=== PATIENT | male | born 1950 | race Caucasian/White ===

== ENCOUNTER 2020-09-11 12:04 | Emergency (ER) | payer OTHER ==
[~2020-09-11] VITALS: Ht 188 cm; Wt 83.5 kg
[2020-09-11] MEDS ORDERED: CIPRO500 MG PO (12:42)
[2020-09-11] MEDS ORDERED: ULTRAM50 MG PO (12:42)
== END 2020-09-11 15:28 | disposition home or self-care (01) ==
LOC: ER 12:04
DX: R10.31 Right lower quadrant pain (principal)

== ENCOUNTER 2020-10-10 16:57 | Inpatient (IN) | payer OTHER ==
[~2020-10-10] VITALS: Ht 188 cm; Wt 169.6 kg
[~2020-10-10 16:57] MED LIST: CIPRO500 MG PO; ULTRAM50 MG PO
[2020-10-13] MEDS ORDERED: ALLOPURINOL300 MG (09:41)
[2020-10-25] MEDS ORDERED: ZYLOPRIM300 MG PO (11:18)
[2020-10-25] MEDS ORDERED: HYDRALAZINE HCL25 MG PO (11:18)
[2020-10-25] MEDS ORDERED: ONDANSETRON ODT4 MG PO (11:18)
[2020-10-25] MEDS ORDERED: MEGESTROL625 MG/5 M PO (11:18)
[2020-10-25] MEDS ORDERED: CARVEDILOL6.25 MG PO (11:18)
== END 2020-10-25 13:54 | disposition home or self-care (01) | DRG 193 ==
LOC: ER 16:57 → MEDI 10-11 09:55 → SEC-K 10-11 09:55 → MEDI 10-11 14:05
PROVIDERS: ADMIT Internal Medicine; ATTEND Internal Medicine
PROC: 4A12X4Z Monitoring of Cardiac Electrical Activity, External Approach (ICD-10-PCS; 2020-10-11)
PROC: 0FBG3ZX Excision of Pancreas, Percutaneous Approach, Diagnostic (ICD-10-PCS; principal; 2020-10-20)
PROC: 30233N1 Transfusion of Nonautologous Red Blood Cells into Peripheral Vein, Percutaneous Approach (ICD-10-PCS; 2020-10-24)
DX: J18.9 Pneumonia, unspecified organism (principal); I26.99 Other pulmonary embolism without acute cor pulmonale; I50.31 Acute diastolic (congestive) heart failure; I24.9 Acute ischemic heart disease, unspecified; I82.412 Acute embolism and thrombosis of left femoral vein; I82.432 Acute embolism and thrombosis of left popliteal vein; N17.8 Other acute kidney failure; C25.2 Malignant neoplasm of tail of pancreas; E86.0 Dehydration; I11.0 Hypertensive heart disease with heart failure; Z20.822 Contact with and (suspected) exposure to COVID-19; D64.9 Anemia, unspecified; I44.7 Left bundle-branch block, unspecified
CPT/HCPCS: 71275